=== PATIENT | female | born 1950 | race Caucasian/White ===

== ENCOUNTER 2017-03-02 13:31 | Outpatient (CLI) | payer MEDICARE, BC ==
[~2017-03-02 13:31] MED LIST: SIMVASTATIN20 MG ORAL; SYNTHROID50 MCG ORAL
--- NOTE | 2017-03-02 15:28 | GI Initial Consult Note ---
History of Present Illness General Date patient seen: March 02, 2017 Time patient seen: 15:21 Referring physician: KATIE Reason for Consultation: ABDOMINAL PAIN Present Illness HPI 66 year old female patient, familiar to our clinic presents today with c/o of lower abdominal pain x24 she describes as cramping and sharp. Denies N/V/D. Pt has unremarkable history of colonoscopy in 2012, see summary below. DATE OF PROCEDURE: 01/30/2013 SURGEON: ERIN JIMENEZ MD REASON FOR PROCEDURE: A 62-year-old female referred for a screening colonoscopy. SUMMARY OF FINDINGS: Good colonoscopy prep with only evidence of sigmoid diverticulosis and internal hemorrhoids. RECOMMENDATIONS: Repeat colonoscopy in 5 years. Home Meds Reported Medications Levothyroxine Sodium (Synthroid) 50 Mcg Tab, 50 MCG ORAL DAILY Take in the morning on an empty stomach, at least 30 minutes before food. 01/30/13 Simvastatin (ZOCOR) 20 Mg Tablet, 20 MG ORAL BEDTIME 01/30/13 Med list reviewed/reconciled: Yes Allergies: Coded Allergies: No Known Allergies (Unverified , 01/30/13) Patient History History Provided By: Patient, Medical Record PMH Narrative elevated cholesterol hypothyroidism PSHx x 2 Family History Narrative Father - Prostate CA Mother - Brain aneurysm Social History: Reports: other - coffee Review of Systems All Other Systems: negative except mentioned in HPI Physical Exam T 98.7 BP 116/53 P 63 97 RA 109.9 lbs, denies any unintentional weight loss General Appearance: well appearing, no apparent distress, alert Head: normocephalic EENT: normal ENT inspection Neck: supple Respiratory: normal breath sounds, no respiratory distress Cardiovascular: normal peripheral pulses, normal rate, regular rhythm Gastrointestinal: normal inspection, non tender, soft Rectal: deferred Genitourinary: no CVA tenderness Musculoskeletal: normal inspection, back normal Neurologic: normal inspection, alert, oriented x3, responsive Psychiatric: normal inspection, judgement/insight normal, memory normal Skin: normal inspection, normal color, no rash, warm/dry, palpation normal Lymphatic: normal inspection, no adenopathy GI: Plan Problems: (1) Hypothyroid (2) Elevated cholesterol (3) Diverticulosis (4) Abdominal pain Plan ordered APCT, if negative we will consider colonoscopy. RTC after imaging study repeat colonoscopy next year 2017 Thank you for referring this patient, we will follow. Sweeney,Seble Khoa N.P. March 02, 2017 15:28
== END 2017-03-02 14:15 | disposition home or self-care (01) ==
LOC: PAN 13:31
DX: R10.30 Lower abdominal pain, unspecified (principal); E03.9 Hypothyroidism, unspecified; E78.00 Pure hypercholesterolemia, unspecified; K57.90 Diverticulosis of intestine, part unspecified, without perforation or abscess without bleeding; Z80.42 Family history of malignant neoplasm of prostate
CPT/HCPCS: 99201

== ENCOUNTER 2017-03-03 08:31 | Outpatient (CLI) | payer MEDICARE, BC ==
--- NOTE | 2017-03-03 11:52 | Diagnostic Imaging Report ---
Clinical Indication: Abdominal pain. History of Technique: Patient given oral contrast. IV administration nonionic contrast. Venous phase spiral acquisition obtained through the abdomen and pelvis. Multiplanar reconstructions were generated. Total dose length product 547 mGycm. CTDIvol(s) 12 mGy. Dose reduction achieved using automated exposure control Comparison: None Findings: There is fairly extensive sigmoid diverticulosis. There is fairly extensive diffuse proximal sigmoid wall thickening. There is slight infiltration of the perisigmoid fat surrounding area of wall thickening. No extraluminal gas or focal fluid collections are demonstrated. The appendix is equivocally visualized. No findings to suggest acute appendicitis. No small bowel distention. No small bowel wall thickening. Contrast is seen to traverse the entirety of the GI tract, including the colon. No free or loculated intraperitoneal air or fluid is evident. The distal esophagus, stomach, duodenum are unremarkable. The liver demonstrates a subcentimeter low-attenuation lesion within segment 6 which is too small to characterize, is otherwise unremarkable. The gallbladder, bile ducts, pancreas, spleen, adrenals are unremarkable. The right kidney demonstrates a 4 mm nonobstructive intrarenal calculus. The left kidney demonstrates subcentimeter low-attenuation lesions which are too small to characterize. No retroperitoneal or mesenteric mass or adenopathy. No pelvic mass or adenopathy. The included lung bases demonstrate some thickening of the inferior aspect of the major fissure. The bones demonstrate degenerative spondylosis changes. Impression: Findings compatible with mild acute uncomplicated sigmoid diverticulitis Right lobe hepatic subcentimeter low-attenuation lesion, most likely benign simple or bile hamartomas. No further followup necessary. Left renal low-attenuation lesions, most likely benign simple cortical cysts. No further followup necessary Nonobstructing 4 mm right intrarenal calculus Incidental finding of mild thickening of the left lung major fissure, degenerative spondylosis Findings discussed by phone with Dr. Sawant at the time of interpretation The CT scanner at [facility] is accredited by the [employer] and the scans are performed using protocols designed to limit radiation exposure to as low as reasonably achievable to attain images of sufficient resolution adequate for diagnostic evaluation.
== END 2017-03-03 10:31 | disposition home or self-care (01) ==
LOC: CAT 08:31
DX: K57.92 Diverticulitis of intestine, part unspecified, without perforation or abscess without bleeding (principal); N20.0 Calculus of kidney; M47.9 Spondylosis, unspecified
CPT/HCPCS: 74177; Q9967

== ENCOUNTER 2017-03-23 13:03 | Outpatient (CLI) | payer MEDICARE, BC ==
--- NOTE | 2017-03-23 14:01 | GI Progress Note ---
Assessment/Plan Problems: (1) Diverticulitis ICD Codes: K57.92 - Diverticulitis of intestine, part unspecified, without perforation or abscess without bleeding SNOMED: 769138908 (2) Elevated cholesterol ICD Codes: E78.00 - Pure hypercholesterolemia, unspecified SNOMED: 85177214 (3) Hypothyroid ICD Codes: E03.9 - Hypothyroidism, unspecified SNOMED: 15783527 (4) Abdominal pain ICD Codes: R10.9 - Unspecified abdominal pain SNOMED: 35088382 (5) Diverticulosis ICD Codes: K57.90 - Diverticulosis of intestine, part unspecified, without perforation or abscess without bleeding SNOMED: 814583259 Status: stable Status Narrative Seen with Dr. Sawant. Assessment/Plan APCT reviewed >> mild diverticulitis s/p Abx tx colonoscopy scheduled 05/05/17 - CLD/TriLyte prep instructions given. Subjective Subjective lower abdominal pain resolved Objective T 98.3 BP 90/43 P 77 94 RA Denies weight loss. General Appearance: no apparent distress, alert, thin Cardiovascular: normal rate Respiratory/Chest: normal breath sounds, no respiratory distress Abdominal Exam: normal bowel sounds, non tender, soft Extremities: normal range of motion Seble Sweeney N.P. Mar 23, 2017 14:01
== END 2017-03-23 13:47 | disposition home or self-care (01) ==
LOC: PAN 13:03
DX: K57.92 Diverticulitis of intestine, part unspecified, without perforation or abscess without bleeding (principal); E78.00 Pure hypercholesterolemia, unspecified; E03.9 Hypothyroidism, unspecified; R10.9 Unspecified abdominal pain; K57.90 Diverticulosis of intestine, part unspecified, without perforation or abscess without bleeding
CPT/HCPCS: 99211

== ENCOUNTER 2017-04-28 08:09 | Day surgery (SDC) | payer MEDICARE, BC ==
[~2017-04-28] VITALS: Ht 154.9 cm; Wt 47.2 kg
[2017-04-28] VITALS (7 sets, daily range): BP systolic 106–123; BP diastolic 52–73
--- NOTE | 2017-04-28 06:31 | Anethesia Preoperative Eval ---
Anesthesia Pre-op PMH/ROS General Date of Evaluation: Apr 28, 2017 Time of Evaluation: 06:26 Anesthesiologist: leonel ASA Score: ASA 2 Mallampati Score Class I : Soft palate, uvula, fauces, pillars visible Class II: Soft palate, uvula, fauces visible Class III: Soft palate, base of uvula visible Class IV: Only hard plate visible Mallampati Classification: Class II Surgeon: glendy Diagnosis: diverticulosis Surgical Procedure: colonoscopy Anesthesia History: none Social History: smoking - nonsmoker Family History: no anesthesia problems Allergies: Coded Allergies: No Known Allergies (Unverified , 01/30/13) Medications: see eMAR Past Medical History Cardiovascular: Reports: arrhythmia Gastrointestinal/Genitourinary: Reports: other - diverticulosis, diverticulitis , hemmorhoids, abd pain, Endocrine: Reports: hypothyroidism Musculoskeletal/Integumentary: Reports: OA Anesthesia Pre-op Phys. Exam Physician Exam Constitutional: NAD Neurologic: CN 2-12 intact Cardiovascular: RRR Respiratory: CTA Gastrointestinal: S/NT/ND Airway Exam Mallampati Score: Class II MO: full Neck: supple TMD: 2fb ROM: full Teeth: missing Anesthesia Pre-op A/P Risk Assessment & Plan Assessment: asa3 Plan: mac Status Change Before Surgery: No Pre-Antibiotics Drug: SHERRY Mansfield Apr 28, 2017 06:30
[~2017-04-28 08:09] MED LIST changes: +Iothalamate Meglumine 60% 30ML INJ ONE
--- NOTE | 2017-04-28 09:13 | Pre-Procedure Note/Attestation ---
Pre-Procedure Note/Attestation Complete Prior to Procedure Planned Procedure: not applicable Procedure Narrative: colonoscopy Indications for Procedure Pre-Operative Diagnosis: diverticultis Attestation I attest that I discussed the nature of the procedure; its benefits; risks and complications; and alternatives (and the risks and benefits of such alternatives ), prior to the procedure, with the patient (or the patient's legal fundraising sale representative). I attest that, if there was a reasonable possibility of needing a blood transfusion, the patient (or the patient's legal fundraising sale representative) was given the [facility] standardized written summary, pursuant to the [employer] Blood Safety Act ([place] Health and Safety Code # 1645, as amended). I attest that I re-evaluated the patient just prior to the surgery and that there has been no change in the patient's H&P, except as documented below: ERIN JIMENEZ Apr 28, 2017 09:13
--- NOTE | 2017-04-28 09:14 | Short Stay Surgery H&P ---
History of Present Illness History of Present Illness Chief Complaint recent diverticultis HPI Marzena Metcalf is a 66 year old female who was admitted on for Diverticulosis Patient History Allergies: Coded Allergies: No Known Allergies (Unverified , 01/30/13) PAST MEDICAL HISTORY: (1) Elevated cholesterol (2) Abdominal pain (3) Diverticulosis (4) Diverticulitis (5) Hypothyroid Past Surgeries: Social History: Medication History Scheduled Levothyroxine Sodium (Synthroid), 50 MCG ORAL DAILY, (Reported) Simvastatin (Zocor), 20 MG ORAL BEDTIME, (Reported) Review of Systems Cardiovascular: Reports: no symptoms Respiratory: Reports: no symptoms Skeletal: Reports: no symptoms Gastrointestinal: Reports: no symptoms Genitourinary: Reports: no symptoms Neurologic: Reports: no symptoms Endocrine: Reports: no symptoms Hematologic: Reports: no symptoms Physical Exam Skin: normal HENT: normal Heart: normal Lungs: normal Abdomen: normal Extremities: normal Plan Plan of Care colonoscopy Final Diagnosis: Attestation Are the patient's medical conditions optimized for surgery? Attestation Response: yes ERIN JIMENEZ Apr 28, 2017 09:14
[2017-04-28] MEDS ORDERED: FISH OIL 1,2001 EAC2 PO (09:31)
[2017-04-28] MEDS ORDERED: TURMERIC PO (09:31)
[2017-04-28] MEDS ORDERED: VITAMIN D1000 UNI1 ORAL (09:31)
[2017-04-28] MEDS ORDERED: DHEA50 MG PO (09:31)
[2017-04-28] MEDS ORDERED: COENZYME Q1050 MG PO (09:31)
[2017-04-28] MEDS ORDERED: CALCIUM500 M2 PO (09:31)
[2017-04-28] MEDS ORDERED: PROBIOTIC1 EAC2 PO (09:31)
[2017-04-28] MEDS ORDERED: MULTIVITAMINS1 EAC8 ORAL (09:31)
[2017-04-28] MEDS ORDERED: PRIMROSE OIL PO (09:31)
[2017-04-28] MEDS ORDERED: VITAMIN D/CALCIUM PO (09:31)
[2017-04-28] MEDS ORDERED: GRAPE SEED EXTR50 MG PO (09:31)
[2017-04-28] MEDS ORDERED: COENZYME Q1010 MG PO (09:31)
[2017-04-28] MEDS ORDERED: COENZYME Q MC (09:31)
[2017-04-28] MEDS ORDERED: Lidocaine 1% MPF 10mg/ml 5ml ONE (10:50)
[2017-04-28] MEDS ORDERED: Propofol 10mg/ml 20ml IV ONE (10:50)
--- NOTE | 2017-04-28 11:15 | Endoscopy Procedure Note ---
Endoscopy Procedure Note Indication for Procedure: diverticultis Procedures Performed: colonoscopy Operative Findings/Diagnosis: same Specimen: none Pt Tolerated Procedure Well: Yes Estimated Blood Loss: none Anesthesiologist: keith Anesthesia: MAC Implant(s) used?: No 50 yrs or older w/o bx or poly: Yes 10yrs. F/U not recommended: Yes If not recommended, why?: Above average risk 10 yrs. F/U needed: Yes 18 years or older w/prev. colo: Yes <3yrs. since last colonoscopy: No ERIN JIMENEZ Apr 28, 2017 11:15
--- NOTE | 2017-04-28 11:33 | Immediate Post-Op Evaluation ---
Immediate Post-Op Evalulation Immediate Post-Op Evalulation Procedure: colonoscopy Date of Evaluation: Apr 28, 2017 Time of Evaluation: 11:36 Blood Products: none Estimated Blood Loss: negligible Blood Pressure Systolic: 112 Blood Pressure Diastolic: 47 Pulse Rate: 75 Respiratory Rate: 18 O2 Sat by Pulse Oximetry: 100 Temperature (Fahrenheit): 97.9 Pain Score (1-10): 0 Nausea: No Vomiting: No Complications none Patient Status: awake, reacts, patent Hydration Status: adequate Drug: SHERRY Mansfield Apr 28, 2017 11:33
[2017-04-28] MEDS ORDERED: Atropine Inj 1mg/10ml Syr IV PRN (11:45)
[2017-04-28] MEDS ORDERED: Hydromorphone 0.5mg/0.5ml inj IVP PRN (11:45)
[2017-04-28] MEDS ORDERED: Midazolam 2mg/2ml Inj IVP PRN (11:45)
[2017-04-28] MEDS ORDERED: DiphenhydrAMINE 50mg/ml Inj IVP PRN (11:45)
--- NOTE | 2017-04-28 13:45 | Procedure Note ---
DATE OF PROCEDURE: 04/28/2017 SURGEON: Harjinder Sawant M.D. PROCEDURE: Upper endoscopy with biopsy and colonoscopy. ANESTHESIOLOGIST: Angelica Marquez M.D. INSTRUMENT: Olympus adult flexible upper endoscope and colonoscope. INDICATION: Recent diverticulitis. REASON FOR PROCEDURE: The procedure, risks, benefits, and possible consequences, including hemorrhage, aspiration, perforation and infection, and alternative treatments, were explained to the patient/legal guardian by Dr. Harjinder Sawant and the patient/legal guardian understood and accepted these risks. DESCRIPTION OF PROCEDURE: After informed consent was obtained and the patient was adequately sedated, first rectal exam was performed, which was normal. Then, the scope was advanced from the rectum into cecum the appendiceal orifice, ileocecal valve, right upper quadrant palpation. Quality of prep was very good. The patient had evidence of diverticulosis significant in the left colon. Some of it is very large. the lumen but there is no active diverticulitis at this time. No obvious mass, polyp or any pathology was seen. Retroflexion of rectum showed some small internal hemorrhoids. The patient tolerated the procedure without any complication. SUMMARY FINDINGS: 1. Diverticulosis. 2. Internal hemorrhoids. RECOMMENDATIONS: Follow up as an outpatient. I want to thank, for this kind referral. . Harjinder Sawant M.D. DR: MARIA L JOB#: [id number] CC:
--- NOTE | 2017-05-03 07:56 | Cardiology Report ---
APPROVED REPORT EKG Measurement Heart [id number] Normal sinus rhythm Normal ECG
== END 2017-04-28 12:45 | disposition home or self-care (01) ==
LOC: GAS 08:09
DX: K57.30 Diverticulosis of large intestine without perforation or abscess without bleeding (principal); K64.8 Other hemorrhoids; E78.00 Pure hypercholesterolemia, unspecified; E03.9 Hypothyroidism, unspecified; M19.90 Unspecified osteoarthritis, unspecified site
CPT/HCPCS: 45378; 93005; J2704; 94003; 94150

== ENCOUNTER 2017-05-03 13:57 | Outpatient (CLI) | payer MEDICARE, BC ==
[~2017-05-03 13:57] MED LIST changes: +CALCIUM500 M2 PO; +COENZYME Q MC; +COENZYME Q1010 MG PO; +COENZYME Q1050 MG PO; +DHEA50 MG PO; +FISH OIL 1,2001 EAC2 PO; +GRAPE SEED EXTR50 MG PO; -Iothalamate Meglumine 60% 30ML INJ ONE; +MULTIVITAMINS1 EAC8 ORAL; +PRIMROSE OIL PO; +PROBIOTIC1 EAC2 PO; +TURMERIC PO; +VITAMIN D/CALCIUM PO; +VITAMIN D1000 UNI1 ORAL
--- NOTE | 2017-05-03 14:39 | GI Progress Note ---
Assessment/Plan Problems: (1) Diverticulosis ICD Codes: K57.90 - Diverticulosis of intestine, part unspecified, without perforation or abscess without bleeding SNOMED: 249226578 (2) Abdominal pain ICD Codes: R10.9 - Unspecified abdominal pain SNOMED: 78592662 (3) Hypothyroid ICD Codes: E03.9 - Hypothyroidism, unspecified SNOMED: 13607684 (4) Elevated cholesterol ICD Codes: E78.00 - Pure hypercholesterolemia, unspecified SNOMED: 44425202 Status: stable Status Narrative Discussed with Dr. Sawant. Assessment/Plan COLONOSCOPY SUMMARY FINDINGS reviewed with patient. 1. Diverticulosis. 2. Internal hemorrhoids. RECOMMENDATIONS: monitor throat pain, go to ED if pain worsens or have SOB RTC prn repeat colonoscopy x 5 years Subjective Subjective throat irritation x 6 days Objective T 98.2 BP 98/45 P 62 99 RA General Appearance: no apparent distress, alert Cardiovascular: normal rate, regular rhythm Respiratory/Chest: lungs clear, normal breath sounds, no respiratory distress Abdominal Exam: normal bowel sounds, non tender, soft Extremities: normal range of motion Seble Sweeney N.P. May 03, 2017 14:38
== END 2017-05-03 14:45 | disposition home or self-care (01) ==
LOC: PAN 13:57
DX: K57.90 Diverticulosis of intestine, part unspecified, without perforation or abscess without bleeding (principal); R10.9 Unspecified abdominal pain; E03.9 Hypothyroidism, unspecified; E78.00 Pure hypercholesterolemia, unspecified
CPT/HCPCS: 99211